=== PATIENT | female | born 1985 | race Caucasian/White ===

== ENCOUNTER 2019-01-25 16:16 | Emergency (ER) | payer OTHER ==
[~2019-01-25] VITALS: Ht 162.6 cm; Wt 68.5 kg
[2019-01-25] MEDS ORDERED: XANAX 0.5 MG0.5 MG PO (16:29)
[2019-01-25] MEDS ORDERED: PHENERGAN 25 MG25 M1 PO (16:29)
[2019-01-25] MEDS ORDERED: PROTONIX 20 MG20 M1 PO (16:29)
[2019-01-25] MEDS ORDERED: ONDANSETRON HCL4 M2 PO (16:29)
[2019-01-25] MEDS ORDERED: CYCLOBENZAPRINE5 MG PO (16:43)
[2019-01-25] MEDS ORDERED: NORCO 5-325 TA1 EAC1 PO (16:43)
[2019-01-25 16:45] VITALS: BP 121/63
== END 2019-01-25 16:45 | disposition home or self-care (01) ==
LOC: M.ERS 16:16
DX: M54.41 Lumbago with sciatica, right side (principal); M54.42 Lumbago with sciatica, left side; Z90.49 Acquired absence of other specified parts of digestive tract; Z90.89 Acquired absence of other organs; Z90.3 Acquired absence of stomach [part of]; Z88.8 Allergy status to other drugs, medicaments and biological substances; Z88.6 Allergy status to analgesic agent

== ENCOUNTER → 2020-08-02 | Outpatient (CLI) | payer OTHER ==
[~2020-08-02] MED LIST: CYCLOBENZAPRINE5 MG PO; NORCO 5-325 TA1 EAC1 PO; ONDANSETRON HCL4 M2 PO; PHENERGAN 25 MG25 M1 PO; PROTONIX 20 MG20 M1 PO; XANAX 0.5 MG0.5 MG PO
[2020-08-02 12:13] LABS: ABSOLUTE LYMPHOCYTES 0.7 thou/uL (0.8-5.3); ABSOLUTE MONOCYTES 0.2 thou/uL (0.0-1.2); ABSOLUTE NEUTROPHILS 1.9 thou/uL (1.6-8.1); BASOPHILS 0.3 %; EOSINOPHILS 1.5 %; HEMATOCRIT 40.3 % (37.0-47.0); HEMOGLOBIN 13.9 gm/dL (12.0-15.0); LYMPHOCYTES 25.4 %; MCHC 34.4 g/dL (28.0-37.0); MCV 95.8 fL (80.0-100.0); MONOCYTES 6.8 %; MPV 9.2 fl. (7.2-11.1); NUCLEATED RBCS 0 /100WBC; PLATELET COUNT* 123 thou/uL (150-400); RBC 4.21 mil/uL (4.20-5.00); WBC 2.8 thou/uL (4.0-11.0)
[2020-08-02 12:42] LABS: ALKALINE PHOSPHATASE 88 U/L (46-116); AMYLASE 45 U/L (25-115); ANION GAP 11 mmol/L (7-16); BUN 7 mg/dL (7-18); CALCIUM 9.1 mg/dL (8.5-10.1); CHLORIDE 103 mmol/L (98-107); CHOLESTEROL 106 mg/dL (<200); CO2 26 mmol/L (21-32); CREATININE 0.8 mg/dL (0.6-1.3); GLUCOSE 72 mg/dL (70-99); HDL CHOLESTEROL 40 mg/dL (>40); LDL CHOLESTEROL 56 mg/dL (<100); LIPASE 123 U/L (73-393); SERUM ASSESSMENT Clear; SGOT 30 U/L (15-37); SGPT 29 U/L (30-65); SODIUM 140 mmol/L (136-145); TC:HDL 2.7 Ratio (Not establshd); TOTAL BILIRUBIN 1.8 mg/dL (<0.1-1.0); TOTAL PROTEIN 6.9 g/dL (6.4-8.2); TRIGLYCERIDE 50 mg/dL (<150); VLDL 10 mg/dL (<40)
[2020-08-02 13:15] LABS: ESR (SEDRATE) 1 mm/hr (0-20)
[2020-08-03 02:06] LABS: GLYCOHEMOGLOBIN (HGB A1C) 4.3 % (4.8-5.6)
[2020-08-03 11:07] LABS: ANA INTERPRETATION Negative (Negative)
== END ==
LOC: M.LAB 11:04
PROVIDERS: ATTEND Family Medicine
DX: Z11.52 Encounter for screening for COVID-19 (principal); Z83.3 Family history of diabetes mellitus; R56.9 Unspecified convulsions; Z98.84 Bariatric surgery status; Z20.822 Contact with and (suspected) exposure to COVID-19; Z68.30 Body mass index [BMI] 30.0-30.9, adult